=== PATIENT | male | born 1995 | race Caucasian/White ===

== ENCOUNTER 2018-10-23 23:40 | Emergency (ER) | payer BC ==
[2018-10-23 23:45] VITALS: BP 151/87; PULSE 59; RESP 20; TEMP 98.9
--- NOTE | 2018-10-24 00:25 | XR ---
EXAM: XR Chest, 2 Views CLINICAL HISTORY: Pain TECHNIQUE: Frontal and lateral views of the chest. COMPARISON: No relevant prior studies available. FINDINGS: Lungs: Unremarkable. No consolidation. Pleural space: Unremarkable. No pneumothorax. Heart: Unremarkable. No cardiomegaly. Mediastinum: Unremarkable. Bones/joints: Unremarkable. IMPRESSION: Normal chest x-rays.
--- NOTE | 2018-10-24 00:26 | XR ---
EXAM: XR Abdomen, 2 Views CLINICAL HISTORY: Pain TECHNIQUE: Frontal view of the abdomen/pelvis with upright view of the abdomen. COMPARISON: No relevant prior studies available. FINDINGS: Intraperitoneal space: No free air. Gastrointestinal tract: Unremarkable. No dilation. Bones/joints: Unremarkable. IMPRESSION: Normal abdominal x-rays.
--- NOTE | 2018-10-24 00:46 | ED ---
ENT HPI - General Chief complaint: ENT Stated complaint: Swallowed Beer can tab Time Seen by Provider: 10/23/18 23:46 Source: patient, family Mode of arrival: ambulatory Limitations: no limitations - History of Present Illness Initial comments: 23-year-old male patient presents to the emergency department today for evaluation after accidentally ingesting a tab from a beer can. Patient states he feels like he can feel in his chest. Denies any difficulty breathing or difficulty swallowing. States he has not had anything to eat or drink since ingesting this. Denies any chest pain or abdominal pain. Patient denies any recent rash, fever, chills, nausea, vomiting, diarrhea, constipation, back pain, numbness, tingling, dizziness, weakness, hematuria, dysuria, urinary urgency, urinary frequency, headache, visual changes, or any other complaints. - Related Data Allergies Allergy/AdvReac Type Severity Reaction Status Date / Time No Known Allergies Allergy Verified 10/23/18 23:45 Review of Systems ROS Statement: Those systems with pertinent positive or pertinent negative responses have been documented in the HPI. ROS Other: All systems not noted in ROS Statement are negative. Past Medical History Past Medical History: No Reported History History of Any Multi-Drug Resistant Organisms: None Reported Additional Past Surgical History / Comment(s): oral surgery Past Psychological History: No Psychological Hx Reported Smoking Status: Never smoker Past Alcohol Use History: Occasional Past Drug Use History: None Reported General Exam Limitations: no limitations General appearance: alert, in no apparent distress, other (Physical well- developed, well-nourished adult male patient in no acute distress. Vital signs upon presentation are temperature 98.9F, pulse 59, respirations 20, blood pressure 151/87, pulse ox 97% on room air.) Eye exam: Present: normal appearance, PERRL, EOMI. Absent: scleral icterus, conjunctival injection, periorbital swelling ENT exam: Present: normal exam, normal oropharynx, mucous membranes moist Respiratory exam: Present: normal lung sounds bilaterally. Absent: respiratory distress, wheezes, rales, rhonchi, stridor Cardiovascular Exam: Present: regular rate, normal rhythm, normal heart sounds. Absent: systolic murmur, diastolic murmur, rubs, gallop, clicks GI/Abdominal exam: Present: soft, normal bowel sounds. Absent: distended, tenderness, guarding, rebound, rigid Neurological exam: Present: alert, oriented X3, CN II-XII intact Psychiatric exam: Present: normal affect, normal mood Skin exam: Present: warm, dry, intact, normal color. Absent: rash Course Vital Signs 10/23/18 23:41 Temperature 98.9 F Pulse Rate 59 L Respiratory 20 Rate Blood Pressure 151/87 O2 Sat by Pulse 97 Oximetry Medical Decision Making - Medical Decision Making 23-year-old male patient presented to the emergency department today for possible ingestion of a metal foreign body. Physical examination is unremarkable. Patient is breathing and speaking without difficulty. He is swallowing without difficulty. No abdominal tenderness. X-rays of the abdomen, chest, and neck were obtained and showed no evidence for foreign body or other abnormalities. I did discuss findings and results with the patient. We did discuss return parameters in detail. Is instructed to follow-up with his primary care physician for recheck as soon as possible. He verbalizes understanding and agrees with this plan. - Radiology Data Radiology results: report reviewed, image reviewed 2 views of the abdomen are obtained. Report was reviewed in its entirety. Impression by Dr. Navas shows normal abdominal x-rays. Two-view x-ray of the chest is obtained. Report was reviewed in its entirety. Impression by Dr. Navas shows normal chest x-rays. 2 views of the soft tissues of the neck were obtained. Report was reviewed in its entirety. Impression by Dr. Navas shows normal neck x-rays. Disposition Clinical Impression: Feared condition not demonstrated Disposition: HOME SELF-CARE Condition: Good Additional Instructions: There was no evidence of foreign body found on your x-rays. Follow up with your primary care physician as needed. Return to the emergency department immediately for any new, worsening, or concerning symptoms. Is patient prescribed a controlled substance at d/c from ED?: No Referrals: Yared Nunez MD [Primary Care Provider] - 1-2 days Time of Disposition: 01:13
--- NOTE | 2018-10-24 00:52 | XR ---
EXAM: XR Soft Tissue Neck CLINICAL HISTORY: Foreign body TECHNIQUE: Frontal and lateral views of the soft tissues of the neck. COMPARISON: No relevant prior studies available. FINDINGS: Airway: Unremarkable. No abnormal narrowing. Bones/joints: Unremarkable. Soft tissues: Unremarkable. No abnormal soft tissue prominence. Normal epiglottis. IMPRESSION: Normal neck x-rays.
== END 2018-10-24 01:21 | disposition home or self-care (01) ==
LOC: EC 23:40
DX: Z71.1 Person with feared health complaint in whom no diagnosis is made (principal)
CPT/HCPCS: 70360; 71046; 74018; 99283

== ENCOUNTER → 2025-02-02 | Outpatient (CLI) | payer BC ==
--- NOTE | 2025-02-02 09:31 | US ---
EXAMINATION TYPE: US abdomen complete DATE OF EXAM: 02/02/2025 COMPARISON: NONE CLINICAL INDICATION: Male, 30 years old with history of R10.30 LOWER ABDOMINAL PAIN, UNSPECIFIED; TECHNIQUE: Grayscale and color Doppler imaging of the abdomen was performed. FINDINGS: EXAM MEASUREMENTS: Liver Length: 15.7 cm Gallbladder Wall: 0.2 cm CBD: 0.2 cm, color Doppler imaging was utilized to isolate the common bile duct for measurement. Spleen: 13.0 cm Right Kidney: 11.0 x 4.7 x 5.3 cm Left Kidney: 10.5 x 4.4 x 4.7 cm Pancreas: visualized portions wnl, limited by overlying midline bowel gas Liver: wnl Gallbladder: wnl Evidence for sonographic Barnhart's sign: no CBD: visualized portions wnl, limited by overlying bowel gas Spleen: borderline enlarged Right Kidney: wnl Left Kidney: wnl Upper IVC: wnl Abd Aorta: visualized portions wnl, limited by overlying midline bowel gas. IMPRESSION: No evidence for acute process. [facility], , 02/02/2025 9:29 AM
== END | disposition home or self-care (01) ==
LOC: RADUSWWP 08:25
PROVIDERS: ATTEND Family Medicine
DX: R10.30 Lower abdominal pain, unspecified (principal)
CPT/HCPCS: 76700